=== PATIENT | male | born 2000 | race Caucasian/White ===

== ENCOUNTER 2020-07-12 23:17 | Emergency (ER) | payer OTHER ==
[~2020-07-12] VITALS: Ht 177.8 cm; Wt 92.1 kg
[2020-07-12] MEDS ORDERED: LISI-538 PO (23:28)
[2020-07-13] MEDS ORDERED: GI COCKTAIL 50ML BTL(HYOSCYAMINE/MAALOX/LIDOCAINE VISCOUS)(1:3:1) PO ONE (00:30)
[2020-07-13] MEDS ORDERED: ONDANSETRON 4 MG ORAL DISINTEGRATING TAB PO ONE (00:30)
[2020-07-13 01:44] VITALS: BP 138/72
[2020-07-13] MEDS ORDERED: ONDA4TAB6 PO (01:45)
== END 2020-07-13 01:48 | disposition home or self-care (01) ==
LOC: M ED 23:17
DX: R11.2 Nausea with vomiting, unspecified (principal); R51 Headache; J02.9 Acute pharyngitis, unspecified; R06.09 Other forms of dyspnea; I10 Essential (primary) hypertension; Z79.899 Other long term (current) drug therapy
CPT/HCPCS: 87880; 99284; Q0162; U0002